=== PATIENT | male | born 1975 | race Caucasian/White ===

== ENCOUNTER 2025-02-05 15:55 | Emergency (ER) | payer MEDICAID, OTHER ==
[~2025-02-05] VITALS: Ht 175.3 cm; Wt 90.0 kg
[~2025-02-05 15:55] MED LIST: IBUP-1986 PO
[2025-02-05 16:06] VITALS: BP 142/92; PULSE 87; RESP 16; O2SAT 99
[2025-02-05 18:34] VITALS: TEMP 97.6
== END 2025-02-05 18:36 | disposition left against medical advice (07) ==
LOC: ER 15:56
DX: S62.521A Displaced fracture of distal phalanx of right thumb, initial encounter for closed fracture (principal); X58.XXXA Exposure to other specified factors, initial encounter; Y93.89 Activity, other specified; Y92.89 Other specified places as the place of occurrence of the external cause; Y99.8 Other external cause status; Z53.21 Procedure and treatment not carried out due to patient leaving prior to being seen by health care provider

== ENCOUNTER 2025-02-06 10:19 | Emergency (ER) | payer OTHER ==
[~2025-02-06] VITALS: Ht 175.3 cm; Wt 88.0 kg
[2025-02-06 10:52] VITALS: BP 118/83; PULSE 78; RESP 18; TEMP 97.6; O2SAT 98
== END 2025-02-06 13:25 | disposition home or self-care (01) ==
LOC: ER 10:20
DX: S62.522A Displaced fracture of distal phalanx of left thumb, initial encounter for closed fracture (principal); Z79.1 Long term (current) use of non-steroidal anti-inflammatories (NSAID); X58.XXXA Exposure to other specified factors, initial encounter; Y93.89 Activity, other specified; Y92.89 Other specified places as the place of occurrence of the external cause; Y99.8 Other external cause status
CPT/HCPCS: 29125; 73140; 99283